=== PATIENT | male | born 1965 | race Hispanic/Latino ===

== ENCOUNTER 2022-02-11 10:42 | Emergency (ER) | payer OTHER ==
[~2022-02-11] VITALS: Ht 177.8 cm; Wt 97.1 kg
[2022-02-11] MEDS ORDERED: TETANUS/DIPHTHERIA TOX ADULT 0.5 ML SYR IM ONE (11:00)
[2022-02-11] MEDS ORDERED: BACTRIM DS TAB1 EACH PO (11:18)
[2022-02-11] MEDS ORDERED: ULTRAM 50MG50 MG PO (11:19)
[2022-02-11] MEDS ORDERED: BACITRACIN ZINC 0.9GM TP ONE (11:57)
[2022-02-11] MEDS ORDERED: BACITRACIN ZINC 0.9GM TP SCH (12:00)
[2022-02-12] MEDS ORDERED: BACITRACIN ZINC 15 GM OINT TOP SCH (09:00)
== END 2022-02-11 12:30 | disposition home or self-care (01) ==
LOC: ER 10:57
DX: S62.630B Displaced fracture of distal phalanx of right index finger, initial encounter for open fracture (principal); W27.0XXA Contact with workbench tool, initial encounter; Y92.89 Other specified places as the place of occurrence of the external cause; E11.9 Type 2 diabetes mellitus without complications; F41.9 Anxiety disorder, unspecified; E23.0 Hypopituitarism
CPT/HCPCS: 99283